=== PATIENT | female | born 1965 | race Hispanic/Latino ===

== ENCOUNTER → 2021-07-19 | Outpatient (CLI) | payer OTHER ==
[~2021-07-19] MED LIST: ADVIL100 MG PO
== END ==
LOC: MERGE 15:28 → MAMMO 15:28
PROVIDERS: ATTEND Internal Medicine
DX: Z12.31 Encounter for screening mammogram for malignant neoplasm of breast (principal); E78.5 Hyperlipidemia, unspecified; E11.9 Type 2 diabetes mellitus without complications; K59.01 Slow transit constipation; F41.9 Anxiety disorder, unspecified
CPT/HCPCS: 77067